=== PATIENT | male | born 1965 | race Caucasian/White ===

== ENCOUNTER 2021-07-02 22:24 | Emergency (ER) | payer OTHER ==
[2021-07-02 23:07] LABS: BILIRUBIN NEGATIVE (NEGATIVE); BLOOD 3+ Ery/uL (NEGATIVE); CLARITY CLEAR (CLEAR); COLOR YELLOW (YELLOW); GLUCOSE (U) NORMAL (NORMAL); LEUKOCYTES NEGATIVE Leu/uL (NEGATIVE); NITRITE NEGATIVE (NEGATIVE); PROTEIN NEGATIVE (NEGATIVE); SPECIFIC GRAVITY >=1.030 (1.001-1.030); UROBILINOGEN 0.2 mg/dL (0.2-1.0)
[2021-07-02 23:12] LABS: URINARY RBC 20-50
[2021-07-02 23:13] LABS: URINARY WBC RARE
[2021-07-02 23:14] LABS: CALCIUM OXALATE CRYSTALS TRACE
[2021-07-02 23:16] LABS: MUCOUS TRACE
[2021-07-03 00:20] LABS: BASOPHIL 0.3 % (0-2); EOSINOPHIL 0.2 % (0-5); HCT 47.4 % (42.0-52.0); LYMPHOCYTE 6.9 % (15-48); MCH 30.4 pg (25.0-31.0); MCHC 33.8 g/dL (32.0-36.0); MCV 90.1 fL (78.0-100.0); MONOCYTE 4.3 % (0-12); MPV 9.7 fL (6.0-9.5); NEUTROPHIL 87.9 % (41-80); NRBC 0; PLT 306 K/uL (150-400); RBC 5.26 M/uL (4.70-6.00); RDW 13.8 % (11.5-14.0); WBC 18.1 K/uL (4.0-10.5)
[2021-07-03 00:54] LABS: ALBUMIN 4.1 g/dL (3.4-5.0); BILIRUBIN - TOTAL 0.7 mg/dL (0.2-1.0); BUN/CREAT RATIO (CALC) 18.2 RATIO; CREATININE 1.1 mg/dL (0.67-1.17); GLOBULIN (CALCULATION) 3.9 g/dL; POTASSIUM 3.5 mmol/L (3.5-5.1)
[2021-07-03] MEDS ORDERED: ZOFRAN4 M1 PO (02:16)
[2021-07-03] MEDS ORDERED: FLOMAX0.4 MG PO (02:16)
[2021-07-03] MEDS ORDERED: OXY-IR 5MG5 MG PO (02:17)
== END 2021-07-03 03:05 | disposition home or self-care (01) ==
LOC: FER 22:24
PROVIDERS: Emergency Medicine; Internal Medicine
DX: N13.2 Hydronephrosis with renal and ureteral calculous obstruction (principal); I10 Essential (primary) hypertension; F17.200 Nicotine dependence, unspecified, uncomplicated; Z79.899 Other long term (current) drug therapy
CPT/HCPCS: 36415; 80053; 81001; 83690; 85025; J1170; J1885; J2405; J7030